=== PATIENT | female | born 1970 | race Caucasian/White ===

== ENCOUNTER 2022-06-02 08:03 | Outpatient (CLI) | payer BC, SELFPAY ==
--- NOTE | 2022-06-02 08:15 | CRLHL7_ITS ---
For Patients: As a result of the Cures Act, medical imaging exams and procedure reports are released immediately into your electronic medical record. You may view this report before your referring provider. If you have questions, please contact your health care provider. BILATERAL SCREENING MAMMOGRAM WITH COMPUTER-AIDED DETECTION AND TOMOSYNTHESIS TECHNIQUE: CC and MLO views were obtained. These mammographic images have been obtained using full-field digital technique. These mammographic images were interpreted with the benefit of computer-aided detection. Breast tomosynthesis was used in this interpretation. COMPARISON FILM: 01/19/21, 12/25/19, 02/08/18. FINDINGS: The breasts are almost entirely fatty. IMPRESSION: There is no radiographic evidence for malignancy. ASSESSMENT: BI-RADS Category 1: Negative RECOMMENDATION: Routine screening mammogram in 1 year. A lay language report of this examination will be provided to the patient. KYLE ISRAEL M.D. Diagnostic/Nuclear Medicine Radiologist [email or web address] Transcribed: 2:[address]/Dictated by: Klye Israel MD @ 06/02/2022 10:05:00 AM (Electronically Signed)
== END 2022-06-02 08:04 | disposition home or self-care (01) ==
LOC: MAMMO 08:05
PROVIDERS: PCP Family Medicine; Visit Provider Family Medicine
DX: Z12.31 Encounter for screening mammogram for malignant neoplasm of breast (principal)
CPT/HCPCS: 77063; 77067

== ENCOUNTER 2022-07-25 09:32 | Outpatient (CLI) | payer BC, SELFPAY | END 2022-07-25 09:33 | disposition home or self-care (01) | LOC: OP CLINIC 09:33 | PROVIDERS: PCP Family Medicine; Visit Provider Surgery | DX: Z12.11 Encounter for screening for malignant neoplasm of colon (principal); K63.89 Other specified diseases of intestine; K57.30 Diverticulosis of large intestine without perforation or abscess without bleeding | CPT/HCPCS: 45380; 88305; 99153; J2250; J3010 ==

== ENCOUNTER 2023-07-13 08:56 | Outpatient (CLI) | payer BC, SELFPAY ==
--- NOTE | 2023-07-13 09:15 | CRLHL7_ITS ---
For Patients: As a result of the Century Cures Act, medical imaging exams and procedure reports are released immediately into your electronic medical record. You may view this report before your referring provider. If you have questions, please contact your health care provider. BILATERAL SCREENING MAMMOGRAM WITH COMPUTER-AIDED DETECTION AND TOMOSYNTHESIS TECHNIQUE: CC and MLO views were obtained. These mammographic images have been obtained using full-field digital technique. These mammographic images were interpreted with the benefit of computer-aided detection. Breast Tomosynthesis was used in this interpretation. COMPARISON FILM: 06/02/22, 01/19/21, 12/25/19. FINDINGS: There are scattered areas of fibroglandular density IMPRESSION: There is no radiographic evidence for malignancy. ASSESSMENT: BI-RADS Category 1: Negative RECOMMENDATION: Routine screening mammogram in 1 year. A lay language report of this examination will be provided to the patient. Matt Maloney M.D. Diagnostic Radiologist [email or web address] FRANCESCO/Dictated by: Matt Maloney MD @ 07/13/2023 10:07:00 AM (Electronically Signed)
== END 2023-07-13 08:57 | disposition home or self-care (01) ==
LOC: MAMMO 08:58
PROVIDERS: PCP Family Medicine; Visit Provider Family Medicine
DX: Z12.31 Encounter for screening mammogram for malignant neoplasm of breast (principal)
CPT/HCPCS: 77063; 77067

== ENCOUNTER 2024-06-11 09:34 | Outpatient (CLI) | payer BC, SELFPAY ==
--- NOTE | 2024-06-11 09:45 | CRLHL7_ITS ---
For Patients: As a result of the Century Cures Act, medical imaging exams and procedure reports are released immediately into your electronic medical record. You may view this report before your referring provider. If you have questions, please contact your health care provider. DIGITAL DIAGNOSTIC BILATERAL MAMMOGRAM USING TOMOSYNTHESIS AND COMPUTER-AIDED DETECTION LEFT BREAST ULTRASOUND CLINICAL HISTORY: LEFT breast pain. COMPARISON: 07/13/23, 06/02/22, 01/19/21. TECHNIQUE: Digital BILATERAL mammogram in four projections with computer-aided detection. Tomosynthesis was used in this interpretation. Real-time ultrasound imaging of LEFT breast with imaging documentation. BREAST COMPOSITION: The breasts are almost entirely fatty. FINDINGS: 3D CC/MLO BILATERAL mammogram images submitted. No suspicious mass or architectural distortion. No significant interval change in axillary lymph nodes. No suspicious calcifications. Targeted LEFT breast ultrasound performed at 9 o`clock 15 cm from the nipple. Normal breast tissue is present. Trace pericardial effusion may be present. Targeted ultrasound of the LEFT axilla demonstrates multiple morphologically normal lymph nodes. IMPRESSION: No evidence of breast malignancy or axillary adenopathy. Trace pericardial effusion may be present. RECOMMENDATIONS: Routine screening mammography and clinical followup. A lay language report of this examination will be provided to the patient. BI-RADS Category 2. Benign. Dictated by Matt Maloney MD @ 06/11/2024 10:52:33 AM j/Dictated by: Matt Maloney MD @ 06/11/2024 10:52:00 AM (Electronically Signed)
--- NOTE | 2024-06-11 10:15 | CRLHL7_ITS ---
For Patients: As a result of the Cures Act, medical imaging exams and procedure reports are released immediately into your electronic medical record. You may view this report before your referring provider. If you have questions, please contact your health care provider. PLEASE SEE DIGITAL DIAGNOSTIC BILATERAL MAMMOGRAM PERFORMED SAME DAY CRL:srinivas espino/Dictated by: Matt Maloney MD @ 06/11/2024 10:53:00 AM (Electronically Signed)
== END 2024-06-11 09:35 | disposition home or self-care (01) ==
LOC: MAMMO 09:35
PROVIDERS: PCP Physician Assistant Medical; Visit Provider Physician Assistant Medical
DX: N64.4 Mastodynia (principal)
CPT/HCPCS: 76642; 77066; G0279

== ENCOUNTER 2025-02-01 10:42 | Emergency (ER) | payer BC, SELFPAY ==
--- OUTSIDE RECORDS SUMMARY | 2022-06-21 08:28 | XMS_ITS | Continuity of Care Document ---
Author Organization [facility] Address [address] [address] [place] [address] Phone Care Team Providers Care Columnist/Commentator Name Role Phone Jermanie Kenny MD, Danilo Unavailable Unavailabl e Advance Directives Directive Yes / No Effective Date File Name No Information Encounters Encounter Description Practice Location Reason(s) For Visit Diagnoses Date Provider Providers Copied on Encounter [facility], [address] [address], [place], [place], [id number], [place] tel:[phone] [facility] No Information Jermaine Carrasco. [address], [place], [place], [id number], [place]. tel:[phone] Family History Family Member Type Diagnosis Age At Onset No Information Payers Payer name Insurance type Covered republican ID Authoriza tion(s) No Information Social History Type Description Quantity Date Captured Comments Sex Female Smoking Status No Information Chief Complaint And Reason For Visit No Information Reason For Referral Reason For Referral No Information History Of Present Illness Encounter Date Complaint History Of Prese nt Illness No Information Functional Status Date Functional Assessmen t No Information Instructions Date Instruction Additional Infor mation No Information Assessments Type Assessment Date No Information Patient Care Teams Name Effective Dates (start - stop) Status Members No Information
--- OUTSIDE RECORDS SUMMARY | 2022-06-21 08:28 | XMS_ITS | Continuity of Care Document ---
Author Organization [facility] Address [address] [address] [place] [address] Phone Care Team Providers Care Follow Up Specialist Name Role Phone Jermaine Kenny MD, Danilo Unavailable Unavailabl e Advance Directives Directive Yes / No Effective Date File Name No Information Encounters Encounter Description Practice Location Reason(s) For Visit Diagnoses Date Provider Providers Copied on Encounter [facility], [address] [address], [place], [place], [id number], [place] tel:[phone] [facility] No Information Jermaine Carrasco. [address], [place], [place], [address], [place]. tel:[phone] Family History Family Member Type Diagnosis Age At Onset No Information Payers Payer name Insurance type Covered alliance party ID Authoriza tion(s) No Information Social History [...]
--- OUTSIDE RECORDS SUMMARY | 2024-11-05 05:15 | XMS_ITS ---
Author Organization [facility] Address [address] [place] [address] [address] [place] [address] Care Team Providers Care Recycling Crew Supervisor Name Role Phone Andrez Green PA-C Primary Care Provider Unavail able Yoshi Barrios Unavailable [phone] Barbara MERAZ, David Unavailable Unavailable REASON FOR VISIT local bilateral L5-S1 TFE, Encounters Encounter Location Date Provider Diagnosis [facility] [address] [facility] [address] [place] [address] 11/05/2024 Yoshi Barrios Plan Of Treatment No Information Progress Notes * Stephany RUIZ RDOB:[birth year] (54 yo F)Acc No.[id number]:11/05/2024 Patient: Stephany WONG Provider: Emanuel Barrios M.D. :1970 A ge:54 Y S ex:Female Date:11/05/2024 Phone: Address:[address] [place], [place] [address]JEFF [phone] Pcp:Andrez Green PA-C * Billing Information: * Visit Code: * Procedure Codes: * Electronic signature of Hansel Barrios MD on 02/01/2025 at 10:44 AM CDT Sign off status: Pending * Provider: Emanuel Barrios M.D. Date: 11/05/2024 Generated for Tatii amanda/Faal/eTransmitting on: 0 02/01/2025 10:44 AM CDT
[2025-02-01] VITALS (27 sets, daily range): BP systolic 124–181; BP diastolic 65–92; PULSE 65–78; RESP 16–18; TEMP 36.9; O2SAT 95–99; BMI 52.3
--- OUTSIDE RECORDS SUMMARY | 2025-02-01 10:44 | XMS_ITS | Patient Health Record ---
Author Organization [facility] Address [address] [place] [address] [address] [place] [address] Care Team Providers Care Automation And Controls Supervisor Name Role Phone Andrez Green PA-C Primary Care Provider Unavail able Yoshi Barrios Unavailable [phone] David Jimenez MD Unavailable Unavailable Jose Duggan Unavailable [phone] Allergies Allergen (clinical drug ingredient) Drug/Non Drug Allergy documented on EMR Reaction Allergy Type Onset Date Status erythromycin Erythromycin rash, vomiting Drug Allergy Active Fish derivative (substance) Fish-derived Products vomiting Drug Allergy Active Results Component Value Reference Range Notes MRI : Lumbar Reviewed date:10/15/2024 03:18:51 PM Interpretation: Performing Lab: Notes/Report: Original Report EXAM: MRI OF THE LUMBAR SPINE CLINICAL INFORMATION: 54-year-old female with persistent low back pain. COMPARISON STUDY: MR dated 06/21/2010. TECHNICAL INFORMATION: T1, T2 fast spin echo and STIR sagittal thin sections through the lumbar spine with T1 and T2 fast spin echo axial sections at selected levels. T1-weighted coronal images were also acquired. INTERPRETATION: There is normal segmentation of lumbar vertebral elements with mild retrolisthesis at L5-S1 is again demonstrated. The conus medullaris remains normal in appearance. Type I and type II marrow changes are again demonstrated. There is subtle dextrocurvature of the upper thoracic spine. The upper bony sacrum remains intact. There are no paraspinous soft tissue abnormalities. At L5-S1 there is advanced disc degeneration which has progressed since the previous exam. There is a caudally migrating broad-based 5 mm extrusion with subarticular recess stenosis and compression of the traversing S1 nerve roots. Mild to moderate front back foraminal stenosis is demonstrated. At L4-5 there is mild facet arthrosis and disc degeneration without significant canal or foraminal stenosis. At the L2-3 level there is mild disc degeneration. A developmentally narrow canal and dorsal epidural fat contributes to narrowing the thecal sac without neural impingement. There is mild front back foraminal narrowing as well. At L2-3 there is a large (7 mm) left paracentral protrusion causing subarticular recess stenosis with impingement of the traversing L3 nerve root (axial image 24 series 1 6). Foramina are spared. Mild disc degeneration at L1-2 with spondylosis is demonstrated. No canal or foraminal stenosis. The T12-L1 level is unremarkable. CONCLUSION: 1. 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 2. Progressive disc degeneration at L5-S1 with bilateral S1 nerve root impingement due to subarticular recess stenosis. 3. Type I and type II marrow changes at multiple levels may be associated with axial back pain. Read by: Tony Clifford M.D. Reviewed and Electronically Signed by: Tony Clifford M.D. Reason For Referral No Information Medications Medication SIG (Take, Route, Frequency, Duration) Notes Start Date End Date Status Atorvastatin Calcium 20 MG TAKE 1 TABLET BY MOUTH AT BEDTIME Oral; Duration: 90 Days Active Vitamin D (Ergocalciferol) 1.25 MG (83675 UT) Oral; Duration: 28 Days Acti ve Ibuprofen 200 MG 1 tablet with food o r milk as needed Orally Three times a day Not-Taking Social History Tobacco Use: Social History Observation Description Date Details (start date - stop date) Never Smoker NA - NA Tobacco Control (Standard) Question Answer Notes Tobacco use: Nonsmoker AUDIT-C (Standard) Question Answer Notes Did you have a drink contain ing alcohol in the past year? Yes How often did you have a dri nk containing alcohol in the past year? 2 to 3 times a week (3 points) How many drinks did you have on a typical day when you were drinking in the past year? 1 or 2 drinks (0 point) How often did you have six o r more drinks on one occasion in the past year? Never (0 point) Points 3 Interpretation Positive Problems Problem Type SNOMED Code ICD Code Onset Dates Problem Status W/U Status Risk Notes Problem Chronic pain (54374957) Other chronic pain (G89.29) Active confirmed Problem Pain of right knee region (finding) (113285684282751) Pain in right knee (M25.561) Active confirmed Problem Lumbosacral radiculopathy (8799890) Radiculopathy, lumbosacral region (M54.17) Active confirmed Problem Pain in left leg (580770289) Pain in left leg (M79.605) Active confirmed Problem Low back pain (176356945) Low back pain, unspecified (M54.50) Active confirmed Vital Signs Blood pressure diastolic 72 mm Hg 11/14/2024 Height 64 in 11/14/2024 Blood pressure systolic 122 mm Hg 11/14/2024 Weight 285 lbs 11/14/2024 BMI 48.91 kg/m2 11/14/2024 Procedures Procedure Date Ordered Date Performed Result Body Sit e Intervention: 10/17/2024 10/23/2024 sched 11/05 Encounters Encounter Location Date Provider Diagnosis [facility] [address] [place] [phone] 09/24/2024 Yoshi Bennet Low back pain, unspecified M54.50 ; Pain in left leg M79.605 ; Pain in right knee M25.561 and Other chronic pain G89.29 [facility] [address] [facility] [address] [place] [address] 10/17/2024 Jose Urban Pain in right knee M25.561 ; Radiculopathy, lumbosacral region M54.17 and Other chronic pain G89.29 [address] [facility] [address] [place] [address] 11/05/2024 Yoshi Bennet Radiculopathy, lumbosacral region M54.17 [address] [facility] [address] [place] [address] 11/14/2024 Jose Urban Pain in right knee M25.561 ; Radiculopathy, lumbosacral region M54.17 and Other chronic pain G89.29 [facility] [address] [place] [address] [address] [place] [address] 09/13/2024 Yoshi Barrios [facility] [address] [place] [address] 09/25/2024 Yoshi Barrios Low back pain, unspecified M54.50 [facility] [address] [place] [address] [address] [place] [address] 11/04/2024 Yoshi Barrios Assessments Encounter Date Diagnosis (ICD Code) Assessment Notes Treatment Notes Treatment Clinical Notes Section Notes 11/14/2024 Pain in right knee (ICD-10 - M25.561) 11/05/2024 Radiculopathy, lumbosacral region (ICD-10 - M54.17) 09/24/2024 Pain in left leg (ICD-10 - M79.605) 09/24/2024 Low back pain, unspecified (ICD-10 - M54.50) 10/17/2024 Pain in right knee (ICD-10 - M25.561) 10/17/2024 Radiculopathy, lumbosacral region (ICD-10 - M54.17) 09/25/2024 Low back pain, unspecified (ICD-10 - M54.50) 10/17/2024 Other chronic pain (ICD-10 - G89.29) Stephany presents to the clinic for an evaluation regarding her chronic pain. I have reviewed her symptoms and current medications. I have reviewed the lumbar MRI dated 10/15/2024 with the patient today. Following my imaging review and based on the patients clinical presentation I have recommended a bilateral L5-S1 TFE. Details of this procedure were discussed, and the patient expressed interest in proceeding. Therefore, an order was placed accordingly. Consideration for the Intracept procedure at L5-S!1 may be indicated in the future as there were Modic I & II changes noted on the patient's MRI. Regarding medications, I checked the [facility] database and I did not find any inconsistencies. We may consider alternative medications in the future as Topamax was not beneficial and led to side effects. This treatment plan was reviewed with Stephany, and she was agreeable. She will follow up for further evaluation in one month or sooner. I will continue to monitor her progress, adjusting her treatment plan as necessary. Plan: 1. Reviewed lumbar MRI 2. Order bilateral L5-S1 TFE 3. Consider Intracept at L5-S1; Modic changes noted 4. Follow up in one month Discharge instructions reviewed verbally. Discussed the risks/benefits of prescribed medication. The patient was instructed to return to the office as scheduled and call with any questions, problems or concerns. LUMBAR MRI WO CONT 10/15/2024IMPRESSI ON:1. Interim development of a large left-sided HNP at the L2-3 level with T9kakqu root impingement.2. Progressive disc degeneration at L5-S1 with bilateral S1 nerve rootimpingement due to subarticular recess stenosis.3. Type I and type II marrow changes at multiple levels may be associated withaxial back pain. 09/24/2024 Pain in right knee (ICD-10 - M25.561) 11/14/2024 Radiculopathy, lumbosacral region (ICD-10 - M54.17) 09/24/2024 Other chronic pain (ICD-10 - G89.29) Stephany presents to the clinic for an evaluation regarding her chronic pain. I have reviewed her symptoms and current medications as well as her available imaging. At this time, I believe updated imaging is necessary. I will order a lumbar MRI to [facility]. Regarding medications, I checked the [place] [employer] database and I did not find any inconsistencies. I will start her on Topamax for improved relief, and have educated her on side effects. This treatment plan was reviewed with Stephany, and she was agreeable. I will consider lumbar ELANA versus a SIJ injection pending imaging review. She will return in 3 weeks for further evaluation or sooner if needed. I will continue to monitor her progress, adjusting her treatment plan as necessary. Plan: 1. Order lumbar MRI 2. Start Topamax 3. Consider lumbar TFE vs SIJ injection 4. Follow up in 3 weeks for imaging review and medication check Discharge instructions reviewed verbally. Discussed the risks/benefits of prescribed medication. The patient was instructed to return to the office as scheduled and call with any questions, problems or concerns. 11/14/2024 Other chronic pain (ICD-10 - G89.29) Stephany presents to the clinic for an evaluation regarding her chronic pain. I have reviewed her symptoms and current medications. I checked the [facility] database and I did not find any inconsistencies. Given Stephany is receiving great relief from her bilateral L5-S1 TFE, I will consider repeating this procedure in the future, per patient request. I will also consider an Intracept procedure at L5-S1, as there were Modic I & II changes noted on the patient's MRI; if the patient reports any worsened symptoms. This treatment plan was reviewed with Stephany, and she was agreeable. She will follow up as needed. I will continue to monitor her progress, adjusting her treatment plan as necessary. Plan: 1. Consider repeat bilateral L5-S1 TFE 2. Consider Intracept at L5-S1; Modic changes noted 3. Follow up as needed Discharge instructions reviewed verbally. Discussed the risks/benefits of prescribed medication. The patient was instructed to return to the office as scheduled and call with any questions, problems or concerns. LUMBAR MRI WO CONT 10/15/2024IMPRESSI ON:1. Interim development of a large left-sided HNP at the L2-3 level with A8urysz root impingement.2. Progressive disc degeneration at L5-S1 with bilateral S1 nerve rootimpingement due to subarticular recess stenosis.3. Type I and type II marrow changes at multiple levels may be associated withaxial back pain. 09/24/2024 Other I, Celestine Figueroa , am serving as a scribe to document services personally performed by Jose Duggan CNP, based upon my observations and the provider's statements to me. All documentation has been reviewed by the aforementioned WIDE AREA NETWORK ADMINISTRATOR as well as Yoshi Barrios MD, prior to being entered into the official medical record. I, Yoshi Barrios MD attest that the above named individual is acting in scribe capacity, has observed Jose Duggan's performance of the services and has documented them in accordance with her direction. The documentation recorded by the scribe accurately reflects the service Jose Duggan CNP and Yoshi Barrios MD personally performed and the decisions made by them. Thank you very much Dr. Jimenez for kindly referring Stephany to our practice. It is a pleasure to participate in her care. Please feel free to contact me with any questions or concerns. 10/17/2024 Other I, Vern Jacob , am serving as a scribe to document services personally performed by Jose Duggan NP, based upon my observations and the provider's statements to me. All documentation has been reviewed by the aforementioned CORPORATE SAFETY COORDINATOR prior to being entered into the official medical record. I, Jose Duggan NP, attest that the above named individual is acting in scribe capacity, has observed my performance of the services and has documented them in accordance with my direction. The documentation recorded by the scribe accurately reflects the service I personally performed and the decisions made during the clinic visit. 11/14/2024 Other I, Trino Duffy, am serving as a scribe to document services personally performed by Jose Duggan CNP, based upon my observations and the provider's statements to me. All documentation has been reviewed by the aforementioned WIDE AREA NETWORK ADMINISTRATOR as well as Prateek Lee MD, prior to being entered into the official medical record. I, Prateek Lee MD attest that the above named individual is acting in scribe capacity, has observed Jose Duggan's performance of the services and has documented them in accordance with his direction. The documentation recorded by the scribe accurately reflects the service Jose Duggan CNP and Prateek Lee MD personally performed and the decisions made by them. Plan Of Treatment Pending Test Test Name Order Date MRI SPINE LUMBAR W/O CON 09/24/2024 Insurance Providers Payer Name Payer Address Payer Phone Subscriber Number Group Number Insured Name Patient Relationship to Insured Coverage Start Date Coverage End Date [employer] Out of State [address] [address] [place] [address] [id number] Stephany Powers Self - patient is the insured Medical (General) History Medical History History ICD Code Acid reflux Arthritis Heart Murmur Surgical History Surgery Date(Month/Year) Tubal removal 2005 Bunion removal 1985 Hospitalization History Reason Date(Month/Year) Surgical reasons
--- OUTSIDE RECORDS SUMMARY | 2025-02-01 10:45 | XMS_ITS | Clinical Summary ---
Author Organization [facility] Address [address] [place] [address] Care Team Providers Care Hospital Chaplain Name Role Phone Group, [facility] [phone] Andrez Green Primary Care Provider [phone] Allergies Active Allergy Reactions Criticality Noted Date Comments Cephalexin Hives,Rash Low 05/02/2019 Erythromycin Vomiting 09/28/2016 Tolerates Z-Nicolas. Shellfish Containing Products Nausea And Vomiting,Tremors 09/28/2016 Has to ingest, can touch though. Sulfa (Sulfonamide Antibiotics) Rash 09/28/2016 Medications CPAPIndications:OS A (obstructive sleep apnea) CPAP machine for home use at pressure 4-15 cmw, nasal pillow mask x1/3month with nasal pillow cushion x2/mo 1 Each 11 06/07/20 22 Active cholecalciferol (Vitamin D) 1,000 unit capsule Take 1 Capsule (1,000 units) by mouth once daily. 10/30/19 24 Active atorvastatin (LIPITOR) 20 mg tabletIndications: Hyperlipidemia, unspecified hyperlipidemia type Take 1 Tablet (20 mg) by mouth at bedtime. 90 Tablet 2 08/13/19 25 Active MULTIVITAMIN-LETY US SULFATE ORAL Take 1 Tablet by mouth once daily. Active ferrous sulfate (IRON ORAL) Take by mouth. Act zenon predniSONE 50 mg tab tabletIndications: Allergic reaction, initial encounter Take 1 tablet with morning meal x 5 days 5 Tablet 01/16/20 25 Active EPINEPHrine 0.3 mg/0.3 mL auto-injectorIndic ations:Allergic reaction, initial encounter Inject 0.3 mg (1 Pen) intramuscular each time if needed for Allergic Reaction. 2 Each 3 01/16/20 Active Active Problems Problem Noted Date Diagnosed Date High-risk human papillomavir us (HPV) DNA detected in cervical specimen, not type 16 or 18 08/10/2023 Overview (09/11/2024): 07/2023 NIL/HPV+, HPV 16/18 negative 08/2024 NIL/HPV negative. Plan: Pap/HPV due 08/2025. 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/2020 History of gastroesophageal reflux (GERD) 2020 Encounters Date Type Department Care Team Description 01/15/2025 2:00 PM CDT Office Visit [facility] [id number] [place] [id number] Andrez Green PA Allergic Reaction (Face and neck ) 01/15/2025 Travel 11/05/2024 Orders Only [facility] Scanner 1 scan: (1-Ord) [facility] (ISPINE), INJ; L5-S1 BILATERAL LUMBAR TRANSFORAMINAL EPIDURAL STEROID , 11/05/2024 from Last 3 Months Immunizations Immunization Administration Dates Next Due COVID-19 vaccine ([employer] 30mcg/0.3mL) PF, MDV 11/27/2020,11/06/2020 INFLUENZA, IIV3 PF (AGE >= 6 MO) 06/03/2024 Influenza, IIV4 05/10/2023,,04/09/2021,2018,05/11/2018 Tdap 03/30/2019 Tdap, Unspecified 09/15/2011 Zoster (Shingrix-RZV, recombinant) 05/10/2023, Family History Medical History Relation Name Comments No Known Problems Brother No Known Problems Father Heart attack Maternal Aunt 1 Heart attack Maternal Aunt 2 Lung cancer Maternal Grandmother Heart attack Maternal Uncle 1 Heart attack Maternal Uncle 2 Coronary artery disease Mother No Known Problems Sister Relation Name Status Comments Brother Father Alive Maternal Aunt 1 Maternal Aunt 2 Maternal Grandmother Maternal Uncle 1 Maternal Uncle 2 Mother Alive Sister Social History Tobacco Use Types Packs/Day Years Used Date Smoking Tobacco: Never Smokeless Tobacco: Never Tobacco Cessation:Counseling Given: Yes Alcohol Use Standard Drinks/Week Comments Yes 0 (1 standard drink = 0.6 oz pur e alcohol) Occasional PHQ-2 Answer Date Recorded PHQ-2 TOTAL SCORE 0 01/15/2025 Social Connections Answer Date Recorded Do you often feel lonely or isolated from those around you? 0 04/10/2024 Financial Resource Strain Answer Date R ecorded Difficulty of Paying Living Expenses 3 04/10/2024 Difficulty of Paying Living Expenses Not on file 04/10/2024 Food Insecurity Answer Date Recorded Do you worry your food will run out before you are able to buy more? 1 04/10/2024 Transportation Needs Answer Date Record ed Does lack of transportation keep you from medica l appointments? 1 04/10/2024 Does lack of transportation keep you from work, meetings or getting things that you need? 1 04/10/2024 Housing Stability Answer Date Recorded What is your housing situation today? 1 04/10/2024 Utilities Answer Date Recorded Do you have trouble paying f or utilities (for example, heat, electricity, water, phone)? 1 04/10/2024 Comments No Sex and Gender Information Value Date Recorded Sex Assigned at Not on file Legal Sex Female 2:36 PM RESOURCE ANALYST Gender Identity Not on file Sexual Orientation Not on file Obstetrics History Last Filed Vital Signs Vital Sign Reading Time Taken Comments Blood Pressure 120/78 01/15/2025 2:05 PM CDT Pulse 82 01/15/2025 2:05 PM CDT Temperature 36.6 C (97.9 F) 10/30/2023 4:14 PM CDT Respiratory Rate 20 03/30/2019 7:00 PM CDT Oxygen Saturation 97% 10/30/2023 4:14 PM CDT Inhaled Oxygen Concentration - - Weight 135.2 kg (298 lb) 08/28/2024 10:32 AM RESOURCE ANALYST Height 161.3 cm (5' 3.5) 08/28/2024 10:32 AM CS T Body Mass Index 51.96 08/28/2024 10:32 AM RESOURCE ANALYST Plan of Treatment Upcoming Encounters Date Type Department Care Team (Late st Contact Info) Description 02/05/2025 10:40 AM CDT Office Visit [facility] [address] [facility] [address] [place] [address] [place] [address] [place], [place] [id number] Health Maintenance Due Date Last Done Comments HIV for age 15-65 1986 Hepatitis B series for 19+ ( 1 of 3 - 19+ 3-dose series) 1990 Pneumococcal series for age 50+ (1 of 1 - PCV) 2021 COVID-19 vaccine series ( - 2023- season) 2024 07/03/2021, 11/27/2020, 11/06/2020 Influenza Vaccine (#1) 2025 4, 05/10/2023, 04/05/2022, Additional history exists Mammogram for age 45-75 06/11/2025 06/11/20 24, 07/13/2023, 12/25/2019 BMI (ht and wt on same day) for age 18+ 08/28/2025 08/28/2024, 10/30/2023, 07/25/2023, Additional history exists Pap test for age 21-65 08/28/2025 5, 08/28/2024, 08/02/2023, Additional history exists Depression screening for age 12+ 01/15/2026 01/15/2025, 10/30/2023, 04/05/2022, Additional history exists Lipids for age 45-75 07/25/2028 07/25/2023, 04/05/2022, 11/30/2020, Additional history exists Tetanus booster 03/30/2029 03/30/2019, 09/15/2011 Colonoscopy through age 75 07/25/2032 07/25/2022, Hepatitis C screening for ag e 18-79 Completed 04/05/2022 Zoster (shingles) series for age 50+ Completed 05/10/2023, 04/05/2022 Procedures Procedure Name Priority Date/Time Associated Diagnosis Comments VITAMIN D 25 (DEFICIENCY) Routine 01/15/2025 3:13 PM CDT Vitamin D deficiency IRON PLUS IRON BINDING CAP Routine 01/15/2025 3:13 PM CDT Low iron SCAN-OPERATIVE/PROCE DURE REPORT 11/05/2024 12:00 AM CDT [employer] THIN PREP PAP DIAGNOSTIC IMAGED Routine 08/28/2024 11:00 AM RESOURCE ANALYST Cervical high risk HPV (human papillomavirus) test positive SCAN-MAMMOGRAPHY REPORT 06/11/2024 12:00 AM RESOURCE ANALYST LIPID PANEL W REFLEX MEASURED LDL Routine 07/25/2023 12:11 PM RESOURCE ANALYST Lipid screening COLONOSCOPY SCREENING Routine 07/25/2022 12:00 AM RESOURCE ANALYST Screening for colon cancer ANTI HCV Routine 04/05/2022 9:50 AM CDT Encounter for hepatitis C screening test for low risk patient from Last 3 Months or Most Recently Relevant to Health Maintenance Results * VITAMIN D 25 (DEFICIENCY) (01/15/2025 3:13 PM CDT) VITAMIN D,25-OH,TOTAL,IA 36 30 - 100 ng/mL 01/16/2025 5:12 AM CDT [facility] Comment: Vitamin D Status 25-OH Vitamin D: Deficiency: <20 ng/mL Insufficiency: 20 - 29 ng/mL Optimal: > or = 30 ng/mL For 25-OH Vitamin D testing on patients on D2-supplementation and patients for whom quantitation of D2 and D3 fractions is required, the QuestTwitChatureD(TM) 25-OH VIT D, (D2,D3), LC/MS/MS is recommended: order code [id number] (patients >2yrs). See Note 1 Note 1 For additional information, please refer to http://education.[employer].DermLink/faq/QZE924 (This link is being provided for informational/ educational purposes only.) Blood BLOOD SPECIMEN / Unknown [facility] / Unknown 01/15/2025 3:13 PM CDT 01/15/2025 3:13 PM CDT Andrez BLANKENSHIP SEND OUTS Final Resul t Performing Organization Address [facility]/ZIP Co de Phone Number [facility] [address] [address], [place] [phone] * IRON PLUS IRON BINDING CAP (01/15/2025 3:13 PM CDT) Pathologist [facility] IRON, TOTAL 52 45 - 160 mcg/dL 01/16/2025 4:44 AM CDT [facility] IRON BINDING CAPACITY 268 250 - 450 mcg/dL (calc) 01/16/2025 4:44 AM CDT [facility] % SATURATION 19 16 - 45 % (calc) 01/16/2025 4:44 AM CDT [facility] Blood BLOOD SPECIMEN / Unknown [facility] / Unknown 01/15/2025 3:13 PM CDT 01/15/2025 3:13 PM CDT Andrez BLANKENSHIP CHEMISTRY Final Resul t Performing Organization Address [facility] Co de Phone Number [facility] [address] [address], * SCAN-OPERATIVE/PROCEDURE REPORT (11/05/2024 12:00 AM CDT) us Scanner OTHER Final Result * [employer] THIN PREP PAP DIAGNOSTIC IMAGED (08/28/2024 11:00 AM RESOURCE ANALYST) Pathologist [facility] Case Report Gynecologic Cytology Report Case: [id number] Authorizing Provider: Jazzmine Menendez Collected: 08/28/2024 1100 MD Mabel Ordering Location: [facility] Received: 08/28/2024 1108 [facility] Screen: Jillian Nguyen Rescreen: Carina Samaniego Specimen: [employer] ThinPrep Vial Diagnostic, Cervical 09/10/2024 6:52 PM RESOURCE ANALYST [facility] INTERPRETATION/ RESULT NEGATIVE FOR INTRAEPITHELIAL LESION OR MALIGNANCY (NIL) (none) 09/10/2024 6:52 PM RESOURCE ANALYST [facility] at 1852 RESOURCE ANALYST ORGANISM(S) Shift in lisseth suggestive of bacterial vaginosis 09/10/2024 6:52 PM RESOURCE ANALYST [facility] SPECIMEN ADEQUACY Satisfactory for evaluation Endocervical component present 09/10/2024 6:52 PM RESOURCE ANALYST [facility] HPV REQUEST HPV and PAP 09/10/2024 6:52 PM RESOURCE ANALYST [facility] Date of LMP 08/04/2024 09/10/2024 6:52 PM RESOURCE ANALYST [facility] Last Pap Date 08/02/23 09/10/2024 6:52 PM RESOURCE ANALYST [facility] Last Pap Result NIL 6:52 PM RESOURCE ANALYST [facility] Abnormal Pap or [place] Bx in last 5 years Yes 09/10/2024 6:52 PM RESOURCE ANALYST [facility] Menstrual Status Regular Periods 09/10/2024 6:52 PM RESOURCE ANALYST [facility] [place] Bx Done Today No 09/10/2024 6:52 PM RESOURCE ANALYST [facility] Additional Information None Given 09/10/2024 6:52 PM RESOURCE ANALYST [facility] Comment: Cytology is screened at [facility] - [address], [place] [address] and [facility] - [address] [place] [address] and [facility] - [address] [place] [address] Interpreted at [facility] - [address], [place] [address] Automated Review Successful 09/10/2024 6:52 PM RESOURCE ANALYST [facility] Comment:Specimen processed s uccessfully by automated assistant front office manager device, ThinPrep Imaging System, [employer] ANCILLARY TESTING [employer] HPV Ordered, Please see separate report 09/10/2024 6:52 PM RESOURCE ANALYST [facility] Note The pap test is a screening technique, not a diagnostic procedure. It is used primarily to screen for squamous cancers and precursor lesions. Published studies have shown that it is subject to both false negative and false positive results. The pap test should not be used as the sole means to diagnose or exclude pre-malignant and malignant lesions. 09/10/2024 6:52 PM RESOURCE ANALYST [facility] Other (Cervical) Non-Blood / Unknown 08/28/2024 11:00 AM RESOURCE ANALYST 08/28/2024 11:08 AM RESOURCE ANALYST us Jazzmine Menendez MD PATHOLOGY/CYTOLOG Y Final Result Performing Organization Address City/State/[facility] Co de Phone Number [facility] [address] [place] [address], * SCAN-MAMMOGRAPHY REPORT (06/11/2024 12:00 AM RESOURCE ANALYST) Anatomical Region Laterality Modality Other us Scanner OTHER Final Result * LIPID PANEL W REFLEX MEASURED LDL (07/25/2023 12:11 PM RESOURCE ANALYST) CHOLESTEROL,TOTAL 110 100 - 199 mg/dL 07/25/2023 10:10 PM RESOURCE ANALYST [facility] Comment: Cholesterol, Total Reference Ranges Desirable <200 mg/dL Borderline 200-239 mg/dL High >=240 mg/dL TRIGLYCERIDES 77 <150 mg/dL 07/25/2023 10:10 PM RESOURCE ANALYST [facility] HDL CHOLESTEROL 47 >40 mg/dL 10:10 PM RESOURCE ANALYST [facility] NON-HDL CHOLESTEROL 63 <145 mg/dl 07/25/2023 10:10 PM RESOURCE ANALYST [facility] CHOL/HDL RATIO 2.34 <4.50 07/25/2023 10:10 PM RESOURCE ANALYST [facility] LDL CHOLESTEROL 48 <=130 mg/dL 07/25/2023 10:10 PM RESOURCE ANALYST [facility] VLDL CHOLESTEROL 15 <=30 mg/dL 07/25/2023 10:10 PM RESOURCE ANALYST [facility] PROVIDER ORDERED STATUS RANDOM 07/25/2023 10:10 PM RESOURCE ANALYST [facility] Blood BLOOD SPECIMEN / Unknown Venipuncture / Unknown 07/25/2023 12:11 PM RESOURCE ANALYST 07/25/2023 12:11 PM RESOURCE ANALYST us Raymond uGzman MD CHEMISTRY Final Res ult [facility] [address] [place] [address], * COLONOSCOPY SCREENING (07/25/2022 12:00 AM RESOURCE ANALYST) us Raymond Guzman MD GI PROCEDURE ORD Final Re sult * ANTI HCV (04/05/2022 9:50 AM CDT) HEPATITIS C ANTIBODY Non-React zenon Non-React zenon 04/06/2022 5:09 AM CDT [facility] Comment:Antibodies to HCV no t detected; does not exclude the possibility of exposure to HCV. Blood BLOOD SPECIMEN / Unknown Venipuncture / Unknown 04/05/2022 9:50 AM CDT 04/05/2022 9:50 AM CDT Raymond Guzman MD SEND OUTS Final Res ult [facility] [address] [place] [address], from Last 3 Months or Most Recently Relevant to Health Maintenance Insurance [facility] [place] Care Teams Hospital Chaplain Relationship Specialty [place] [address] [place] [address] PCP - General Physician Mine Exploration Engineer 07/19/24 Group, [facility] [address] [place] [address] [address] [place] [address] Pediatric 08/26/15
--- OUTSIDE RECORDS SUMMARY | 2025-02-01 10:45 | XMS_ITS | Clinical Summary ---
Author Organization [facility] Address [address] [place] [address] Care Team Providers Care Materials Planning Analyst Name Role Phone Raymond Guzman MD Primary Care Provider Unavaila ble Allergies Active Allergy Reactions Criticality Noted Date Comments Cephalexin Hives,Rash Low 05/02/2019 Clindamycin Hives,Rash Low 05/02/2019 Erythromycin Nausea and Vomiting 04/20/2019 Shellfish Allergy Nausea and Vomiting,Nausea 09/28/2016 Has to ingest, can touch though. Sulfa Antibiotics Hives 04/20/2019 Medications atorvastatin (LIPITOR) 20 MG tablet TK 1 T PO HS 3 9 Active acetaminophen (TYLENOL) 500 MG tablet Take 500-1,000 mg by mouth every 6 hours as needed for mild pain PRN Active order for DMEIndications: Skin ulcer of right knee with fat layer exposed (H) Handi Medical Order Primary dressing Woun'dres gel Qrt 1 tube Secondary dressing Mepilex border 3x3 Qty 30 Length of Need: 1 month Frequency of dressing change: daily 30 days 0 Active Dermatological Products, Misc. (EPICERAM) EMULIndications :Skin ulcer of right knee with fat layer exposed (H) Externally apply 1 Application topically 2 times daily 225 g 11 0 Active Resolved Problems Problem Noted Date Diagnosed Date Resolved Date Skin ulcer of right knee wit h fat layer exposed 05/02/2019 11/26/2019 Social History Tobacco Use Types Packs/Day Years Used Date Smoking Tobacco: Never Smokeless Tobacco: Never Alcohol Use Standard Drinks/Week Comments Yes 0 (1 standard drink = 0.6 oz pure alcohol) Alcoholic Drinks/day: 3-4 beers nightly Adolescent Education Answer Date Record ed Getting School Help Needed Not on file 04/07 Comments Unknown Sex and Gender Information Value Date Recorded Sex Assigned at Not on file Legal Sex Female 3:39 PM CDT Gender Identity Not on file Sexual Orientation Not on file Last Filed Vital Signs Vital Sign Reading Time Taken Comments Blood Pressure 149/76 05/24/2020 5:08 PM OSTRICH FARMER Pulse 78 05/24/2020 9:00 PM OSTRICH FARMER Temperature 36.4 C (97.6 F) 05/24/2020 5:07 PM OSTRICH FARMER Respiratory Rate 19 05/24/2020 9:00 PM OSTRICH FARMER Oxygen Saturation 96% 05/24/2020 9:00 PM OSTRICH FARMER Inhaled Oxygen Concentration - - Weight 127 kg (280 lb) 05/02/2019 1:16 PM CDT Height 160 cm (5' 3) 05/02/2019 1:16 PM CDT Body Mass Index 49.6 05/02/2019 1:16 PM CDT Plan of Treatment Not on file Insurance [facility] OUT [facility] STATE Care Teams Materials Planning Analyst Relationship Specialty Start Date End Date Raymond Guzman MD PCP - General 04/20/19
--- NOTE | 2025-02-01 10:56 | ED.GENADULT ---
HPI - General Adult General Time Seen by Provider: 10:56 Date Seen: 02/01/25 Chief complaint: Sore Throat Stated complaint: throat swollen Time Seen by Provider: 02/01/25 10:55 Source: patient and RN notes reviewed Mode of arrival: ambulatory Limitations: no limitations History of Present Illness HPI narrative: This 54-year-old female is ambulatory into the ED with complaint of swollen throat. For the last maybe 3 or 4 days she just had some nasal drainage. Her throat started to feel swollen this morning, she feels like it is lower in her throat. She does note that it does not hurt with swallowing, feels like there is difficulty swallowing due to swelling but not pain, she possibly feels like there might be difficulty breathing. She has had a history of strep throat before. She did develop a little cough overnight. She has had no fevers. She really states that there is no pain, does admit that prior cases of strep really have presented more with swelling and not pain. She does note that over the 17 of January she started a 5 day course of prednisone due to an allergic reaction. Related Data Home Medications ?Medication ?Instructions ?Recorded ?Confirmed atorvastatin 20 mg tablet 20 mg PO QPM 02/01/25 02/01/25 epinephrine 0.3 mg/0.3 mL IM allergies 02/01/25 injection, auto-injector Previous Rx's ?Medication ?Instructions ?Recorded amoxicillin 875 mg-potassium 1 tab PO BID #19 tabs 02/01/25 clavulanate 125 mg tablet dexamethasone 4 mg tablet 8 mg (2 x 4 mg) PO DAILY #2 tabs 02/01/25 Allergies Allergy/AdvReac Type Severity Reaction Status Date / Time Sulfa (Sulfonamide Allergy Unknown Verified 02/01/25 11:55 Antibiotics) erythromycin base Allergy Verified 02/01/25 11:55 shellfish Allergy Uncoded 02/01/25 11:55 Review of Systems Status of ROS: Reports: 6 or more systems reviewed and unremarkable except as noted in History and below Exam Const: Vital Signs, click to edit/add: Vital Signs - 24 hr 02/01/25 10:45 02/01/25 11:22 02/01/25 11:30 Temperature 98.5 F Pulse Rate 78 65 Pulse Rate [Right Pulse Oximeter] 76 Respiratory Rate 18 Blood Pressure Blood Pressure [Ri ght Upper Arm] 181/92 H Pulse Oximetry 98 98 99 Oxygen Delivery Me thod Room Air 02/01/25 11:45 02/01/25 12:00 02/01/25 12:15 Temperature Pulse Rate 73 77 78 Pulse Rate [Right Pulse Oximeter] Respiratory Rate Blood Pressure Blood Pressure [Ri ght Upper Arm] Pulse Oximetry 98 98 98 Oxygen Delivery Me thod 02/01/25 12:30 02/01/25 12:45 02/01/25 12:48 Temperature Pulse Rate 73 76 68 Pulse Rate [Right Pulse Oximeter] Respiratory Rate 16 Blood Pressure 135/73 Blood Pressure [Ri ght Upper Arm] Pulse Oximetry 97 96 98 Oxygen Delivery Me thod 02/01/25 12:50 02/01/25 13:00 02/01/25 13:07 Temperature Pulse Rate 70 71 75 Pulse Rate [Right Pulse Oximeter] Respiratory Rate Blood Pressure 135/73 131/81 Blood Pressure [Ri ght Upper Arm] Pulse Oximetry 98 97 97 Oxygen Delivery Me thod 02/01/25 13:15 02/01/25 13:30 02/01/25 13:32 Temperature Pulse Rate 76 74 72 Pulse Rate [Right Pulse Oximeter] Respiratory Rate Blood Pressure 124/65 Blood Pressure [Ri ght Upper Arm] Pulse Oximetry 96 97 96 Oxygen Delivery Me thod 02/01/25 13:45 02/01/25 14:00 02/01/25 14:02 Temperature Pulse Rate 74 72 72 Pulse Rate [Right Pulse Oximeter] Respiratory Rate Blood Pressure 142/77 H Blood Pressure [Ri ght Upper Arm] Pulse Oximetry 96 95 96 Oxygen Delivery Me thod 02/01/25 14:15 02/01/25 14:30 02/01/25 14:32 Temperature Pulse Rate 78 70 76 Pulse Rate [Right Pulse Oximeter] Respiratory Rate Blood Pressure 131/66 Blood Pressure [Ri ght Upper Arm] Pulse Oximetry 97 97 98 Oxygen Delivery Me thod This 54-year-old female is alert, interactive, no apparent distress. Sitting up in the bed in exam room to, speech is normal, no hoarseness, no stridor. She has some clear tearing of her eyes, states this is not abnormal for her. Face is atraumatic, sclera clear, extraocular muscles intact. Oropharynx reveals normal oral mucosa, does have normal mucosa, do not see any significant airway swelling of the upper pharynx, uvula appears normal, do see some tonsillar tissue but there is no significant erythema or exudates. Neck is thick but supple, no adenopathy or masses, nontender. Lungs are clear, good air entry, no wheezing crackles, no tachypnea, no accessory muscle use. CV regular rate and rhythm, no murmur, normal S1-S2. Skin without rash. Documenting provider has reviewed patient's vital signs: yes Course Course ED Course: Patient is complaining of swelling lower in her throat, some difficulty swallowing and possibly breathing. Will obtain labs, nursing staff already collected strep. Will do triple viral swab and consider other infectious etiologies including strep, other bacterial pathogens. Will have her pulse oximetry for monitoring. I am going to intiate dexamethasone for swelling, need to consider antibiotics if clinically appropriate based on pending testing. Reevaluation(s) Time of Reevaluation #1: 13:03 Reevaluation #1: Patient is stable, does not feel worse. She did just recently get the dexamethasone, certainly has not had time to take effect. IV antibiotics with Unasyn were ordered for tonsillitis. We did discuss the swelling down along the left locule a which is unclear if it gets a normal finding or possible some mucosal thickening. Her strep is negative. We are going to treat clinically for tonsillitis. Have discussed with her that hospitalization does need to be considered in case of airway worsening. She will be getting antibiotics, will see how she feels in a bit. Time of Reevaluation #2: 14:02 Reevaluation #2: Patient has completed her antibiotics. We are going to see how she does drinking now. She states her whole right side feels back to baseline. Still feels a little swollen inside on the left but overall is improved. Time of Reevaluation #3: 15:24 Reevaluation #3: Patient is feeling much improved, tolerating orals without any difficulty. Will plan to discharge to home. She is wondering about some further steroids, I think we certainly can write for few days of steroids for her. Vital Signs Vital signs: Initial Vital Signs Temperature 98.5 F 02/01/25 10:45 Temperature Source Temporal Artery Scan 02/01/25 10:45 Pulse Rate 76 02/01/25 10:45 Pulse Rhythm Regular 02/01/25 10:45 Pulse Strength 3+ Normal 02/01/25 10:45 Respiratory Rate 18 02/01/25 10:45 Blood Pressure 181/92 H 02/01/25 10:45 Blood Pressure Mean 121 H 02/01/25 10:45 Blood Pressure Position Sitting 02/01/25 10:45 Pulse Oximetry 98 02/01/25 10:45 Oxygen Delivery Method Room Air 02/01/25 10:45 Vital Signs Temperature 98.5 F 02/01/25 10:45 Pulse Rate 76 02/01/25 10:45 Respiratory Rate 18 02/01/25 10:45 Blood Pressure 181/92 H 02/01/25 10:45 Pulse Oximetry 98 02/01/25 10:45 Oxygen Delivery Method Room Air 02/01/25 10:45 Temperature 98.5 F 02/01/25 10:45 Pulse Rate 76 02/01/25 14:32 Respiratory Rate 16 02/01/25 12:48 Blood Pressure 131/66 02/01/25 14:32 Pulse Oximetry 98 02/01/25 14:32 Oxygen Delivery Method Room Air 02/01/25 10:45 Medications Administered Medications: Discontinued Medications Generic Name Dose Route Start Last Admin Trade Name Freq PRN Reason Stop Dose Admin Dexamethasone 10 mg 02/01/25 12:26 02/01/25 12:46 Dexamethasone 10 Mg/Ml Pf IVP 02/01/25 12:27 10 mg ONCE ONE Administration Ampicillin Sodium/Sulbactam 100 mls @ 200 mls/hr 02/01/25 12:49 02/01/25 13:39 Sodium 3 gm/ Sodium Chloride IVPB 02/01/25 12:50 Infused ONCE ONE Infusion Medical Decision Making Lab Data Lab results reviewed: Yes I reviewed the patient's lab results Labs: Lab Results 02/01/25 02/01/25 02/01/25 Range/Units 10:55 11:06 11:18 WBC (4.50-11.00) K/uL RBC (4.00-5.20) m/uL Hgb (12.0-16.0) gm/dL Hct (33.0-51.0) % MCV (80-100) fL MCH (26-34) pg MCHC (32-36) gm/dL RDW Coeff of Eugene (11.5-15.5) % Plt Count (140-440) K/uL Neut % (Auto) (42.0-72.0) % Lymph % (Auto) (20-44) % Swain % (Auto) (0.0-11.0) % Eos % (Auto) (0.0-7.0) % Baso % (Auto) (0.0-3.0) % Neut # (Auto) (1.7-7.0) K/uL Lymph # (Auto) (0.90-2.90) K/uL Swain # (Auto) (0.00-0.90) K/UL Eos # (Auto) (0.00-0.50) K/uL Baso # (Auto) (0.00-0.30) K/uL Abs Immat Gran (auto) (0.00-0.30) K/uL Imm/Tot Granulo (auto) % Sodium (135-149) mmol/L Potassium (3.6-5.1) mmol/L Chloride (96-114) mmol/L Carbon Dioxide (20-32) mmol/L Anion Gap (7-15) mEq/L BUN (7-30) mg/dL Creatinine (0.5-1.5) mg/dL Estimated Creat Clear Estimated GFR ml/min Glucose (60-115) mg/dL Lactate (0.5-1.9) mmol/L Calcium (8.4-10.6) mg/dL C-Reactive Protein (0.5-1.0) mg/dL SARS-CoV-2 (PCR) Negative SARS-CoV-2 (Negative) Influenza Type A (PCR) Negative PCR FLU A (Negative) Influenza Type B (PCR) Negative PCR FLU B (Negative) RSV (PCR) Negative PCR RSV (Negative) Group A Strep DNA NOT DETECTED (Not Detectd) POC Creatinine 0.7 (0.6-1.3) mg/dl 02/01/25 Range/Units 11:35 WBC 10.95 (4.50-11.00) K/uL RBC 4.40 (4.00-5.20) m/uL Hgb 12.8 (12.0-16.0) gm/dL Hct 39.8 (33.0-51.0) % MCV 91 (80-100) fL MCH 29 (26-34) pg MCHC 32 (32-36) gm/dL RDW Coeff of Eugene 14.5 (11.5-15.5) % Plt Count 361 (140-440) K/uL Neut % (Auto) 74.0 H (42.0-72.0) % Lymph % (Auto) 18.8 L (20-44) % Swain % (Auto) 4.4 (0.0-11.0) % Eos % (Auto) 1.5 (0.0-7.0) % Baso % (Auto) 0.6 (0.0-3.0) % Neut # (Auto) 8.10 H (1.7-7.0) K/uL Lymph # (Auto) 2.10 (0.90-2.90) K/uL Swain # (Auto) 0.50 (0.00-0.90) K/UL Eos # (Auto) 0.16 (0.00-0.50) K/uL Baso # (Auto) 0.07 (0.00-0.30) K/uL Abs Immat Gran (auto) 0.08 (0.00-0.30) K/uL Imm/Tot Granulo (auto) 0.7 % Sodium 139 (135-149) mmol/L Potassium 3.7 (3.6-5.1) mmol/L Chloride 105 (96-114) mmol/L Carbon Dioxide 29 (20-32) mmol/L Anion Gap 5 L (7-15) mEq/L BUN 9 (7-30) mg/dL Creatinine 0.7 (0.5-1.5) mg/dL Estimated Creat Clear 76.88 Estimated GFR 103 ml/min Glucose 104 (60-115) mg/dL Lactate 1.2 (0.5-1.9) mmol/L Calcium 9.2 (8.4-10.6) mg/dL C-Reactive Protein 2.2 H (0.5-1.0) mg/dL SARS-CoV-2 (PCR) (Negative) Influenza Type A (PCR) (Negative) Influenza Type B (PCR) (Negative) RSV (PCR) (Negative) Group A Strep DNA (Not Detectd) POC Creatinine (0.6-1.3) mg/dl Imaging Data CT- Other: Attestation: I have reviewed the pertinent imaging results. Radiologist's impression: Patient: LEONEL SANTOS Facility:?[facility] Patient ID:?[id number] Site Patient ID:?[id number]. Site :?[id number] Study:?CT-ST Neck with IV-02/01/2025 11:58:16 AM Ordering Physician:Hiram Jimenez Final Report: Indication: Sore throat. Dysphagia Technique: CT soft tissue neck with IV contrast was acquired from the skullbase to the thoracic inlet. No comparisons. 145 cc of Isovue 370 was administered intravenously. Findings: Visualized posterior fossa structures are within normal limits. The thyroid, submandibular and parotid glands are within normal limits. The cervical airway is widely patent. Mild fullness within the left vallecula may represent localized mucosal thickening or merely variation related to phase of phonation/inspiration. Right vallecula and piriform sinuses are within normal limits. Visualized pulmonary apices are grossly unremarkable. Mild prominence of bilateral level 1 and level 2 lymph nodes are nonspecific and likely reactive in nature. The palatine tonsils are mildly prominent. No suspicious fluid collections. No convincing evidence of suspicious enhancing masses seen within the soft tissues of the neck. Impression: 1. Mild prominence bilateral level 1 and level 2 lymph nodes are nonspecific but likely reactive in nature. 2. Mild fullness of the palatine tonsils that may be reactive in nature. 3. No radiographic evidence of peripherally enhancing fluid collections. 4. Mild fullness within the left vallecula that may represent phase of phonation/inspiration or localized mucosal thickening. Please note that all CT scans at this facility use dose modulation, iterative reconstruction, and/or weight-based dosing when appropriate to reduce radiation dose to as low as reasonably achievable. Dictated by Umair Oleary MD @ 02/01/2025 12:04:53 PM ----- ADDENDUM ----- FINDINGS: Mild air-fluid level left sphenoid sinus compatible mild localized inflammatory change. Dictated by Umair Oleary MD @ Feb 01 2025 12:05PM (Electronic Signature) Discharge Plan Discharge Clinical Impression: Acute tonsillitis Qualifiers: Pharyngitis/tonsillitis etiology: unspecified etiology Qualified Code(s): J03.90 - Acute tonsillitis, unspecified Patient Disposition: Home, Self-Care Condition: Stable Instructions: Tonsillitis (ED) Additional Instructions: Start oral antibiotic tonight and take as prescribed. Take dose of dexamethasone tomorrow, take with food to help protect your stomach. Stay hydrated with drinking plenty of fluids. If at any point you feel like your swelling is coming back, have further difficulty swallowing, develops fevers despite antibiotics, feel you are worsening, do recommend re-evaluation. Activity Level: Activity as Tolerated Prescriptions: New amoxicillin-pot clavulanate 875-125 mg tablet 1 tab PO BID Qty: 19 0RF dexamethasone 4 mg tablet 8 mg PO DAILY Qty: 2 0RF Rx Instructions: Take once on 02/02 No Action atorvastatin 20 mg tablet 20 mg PO QPM epinephrine 0.3 mg/0.3 mL auto-injector IM Follow Up/Referrals: Andrez Green PA-C [Primary Care Provider, Family Practice] Stand Alone Forms: MyHealth Info Instructions
--- NOTE | 2025-02-01 11:04 | CRLHL7_ITS ---
For Patients: As a result of the Century Cures Act, medical imaging exams and procedure reports are released immediately into your electronic medical record. You may view this report before your referring provider. If you have questions, please contact your health care provider. Indication: Sore throat. Dysphagia Technique: CT soft tissue neck with IV contrast was acquired from the skullbase to the thoracic inlet. No comparisons. 145 cc of Isovue 370 was administered intravenously. Findings: Visualized posterior fossa structures are within normal limits. The thyroid, submandibular and parotid glands are within normal limits. The cervical airway is widely patent. Mild fullness within the left vallecula may represent localized mucosal thickening or merely variation related to phase of phonation/inspiration. Right vallecula and piriform sinuses are within normal limits. Visualized pulmonary apices are grossly unremarkable. Mild prominence of bilateral level 1 and level 2 lymph nodes are nonspecific and likely reactive in nature. The palatine tonsils are mildly prominent. No suspicious fluid collections. No convincing evidence of suspicious enhancing masses seen within the soft tissues of the neck. Impression: 1. Mild prominence bilateral level 1 and level 2 lymph nodes are nonspecific but likely reactive in nature. 2. Mild fullness of the palatine tonsils that may be reactive in nature. 3. No radiographic evidence of peripherally enhancing fluid collections. 4. Mild fullness within the left vallecula that may represent phase of phonation/inspiration or localized mucosal thickening. Please note that all CT scans at this facility use dose modulation, iterative reconstruction, and/or weight-based dosing when appropriate to reduce radiation dose to as low as reasonably achievable. Dictated by Umair Oleary MD @ 02/01/2025 12:04:53 PM (Electronically Signed)
[2025-02-01 11:34] LABS: Strep A DNA Probe* NOT DETECTED (Not Detectd)
[2025-02-01 11:44] LABS: Lactate* 1.2 mmol/L (0.5-1.9)
[2025-02-01 11:45] LABS: Hematocrit 39.8 % (33.0-51.0); Hemoglobin* 12.8 gm/dL (12.0-16.0); Immature Granulocytes Abs Auto 0.08 K/uL (0.00-0.30); Immature Granulocytes Pct Auto 0.7 %; Mean Corpuscular HGB Conc 32 gm/dL (32-36); Mean Corpuscular Hemoglobin 29 pg (26-34); Mean Corpuscular Volume 91 fL (80-100); RDW Coefficient of Variation % 14.5 % (11.5-15.5); Red Blood Count 4.40 m/uL (4.00-5.20); White Blood Count* 10.95 K/uL (4.50-11.00)
[2025-02-01 11:48] LABS: Lymphocytes Absolute Auto 2.10 K/uL (0.90-2.90)
[2025-02-01 11:48] LABS: Creatinine, Point-of-Care* 0.7 mg/dl (0.6-1.3)
[2025-02-01 11:49] LABS: Slide Review Reflex No
[2025-02-01 11:57] LABS: Chloride* 105 mmol/L (96-114); Potassium* 3.7 mmol/L (3.6-5.1); Sodium* 139 mmol/L (135-149)
[2025-02-01 12:01] LABS: Anion Gap 5 mEq/L (7-15); Blood Urea Nitrogen* 9 mg/dL (7-30); Calcium* 9.2 mg/dL (8.4-10.6); Carbon Dioxide* 29 mmol/L (20-32); Creatinine* 0.7 mg/dL (0.5-1.5); Est. Creatinine Clearance* 76.88; Estimated Glomerular Filt Rate 103 ml/min; Glucose* 104 mg/dL (60-115)
[2025-02-01 12:39] LABS: PCR FLU A Negative PCR FLU A (Negative); PCR FLU B Negative PCR FLU B (Negative); PCR RSV Negative PCR RSV (Negative); SARS PCR* Negative SARS-CoV-2 (Negative)
[2025-02-01] MEDS: DEXAMETHASONE 10 MG/ML PF IVP (12:46)
[2025-02-01] MEDS: AMPICILLIN/SULBACTAM 3 GM in 0.9 % SODIUM CHLORIDE Mini-bag 100 ML IVPB (13:02)
== END 2025-02-01 15:47 | disposition home or self-care (01) ==
PROVIDERS: Emergency Provider Family Medicine; PCP Physician Assistant Medical
DX: J03.90 Acute tonsillitis, unspecified (principal)
CPT/HCPCS: 36415; 70491; 80048; 82565; 83605; 85025; 86140; 87631; 87651; 96365; 96375; 99284; J0295; J1100; Q9967

== ENCOUNTER 2025-06-17 14:52 | Outpatient (CLI) | payer BC, SELFPAY ==
--- NOTE | 2025-06-17 15:00 | CRLHL7_ITS ---
For Patients: As a result of the Century Cures Act, medical imaging exams and procedure reports are released immediately into your electronic medical record. You may view this report before your referring provider. If you have questions, please contact your health care provider. INDICATION: BILATERAL SCREENING MAMMOGRAM, ASYMPTOMATIC 54 Y/O FEMALE COMPARISON: 06/11/2024, 07/13/2023, 06/02/2022 TECHNIQUE: Digital mammogram in CC and MLO projections including computer-aided detection (CAD) and tomosynthesis. BREAST COMPOSITION: There are scattered areas of fibroglandular density. FINDINGS: No suspicious findings. ASSESSMENT: BI-RADS 1 Negative RECOMMENDATION: Annual screening mammogram. A lay language report of this examination will be provided to the patient. Dictated by: Matt Maloney MD @ 06/18/2025 10:48:25 (Electronically Signed)
== END 2025-06-17 14:53 | disposition home or self-care (01) ==
LOC: MAMMO 14:53
PROVIDERS: PCP Physician Assistant Medical; Visit Provider Physician Assistant Medical
DX: Z12.31 Encounter for screening mammogram for malignant neoplasm of breast (principal)
CPT/HCPCS: 77063; 77067